=== PATIENT | female | born 1960 | race Caucasian/White ===

== ENCOUNTER 2016-08-10 00:14 | Emergency (ER) | payer OTHER ==
[~2016-08-10] VITALS: Ht 154.9 cm; Wt 44.9 kg
[~2016-08-10 00:14] MED LIST: ABILIFY; CYMBALTA; FLEXERIL PO; LEVOTHROID; LOTENSIN; NORCO 5-325 TA1 EACH PO; VYTORIN
[2016-08-10 02:20] VITALS: BP 162/111
== END 2016-08-10 02:22 | disposition home or self-care (01) ==
LOC: ER 00:14
DX: S63.284A Dislocation of proximal interphalangeal joint of right ring finger, initial encounter (principal); S00.83XA Contusion of other part of head, initial encounter; R04.0 Epistaxis; F10.10 Alcohol abuse, uncomplicated; I10 Essential (primary) hypertension; E78.5 Hyperlipidemia, unspecified; F17.210 Nicotine dependence, cigarettes, uncomplicated; F32.9 Major depressive disorder, single episode, unspecified; E03.9 Hypothyroidism, unspecified; Z88.1 Allergy status to other antibiotic agents; Z88.2 Allergy status to sulfonamides